=== PATIENT | male | born 2000 | race Caucasian/White ===

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

== ENCOUNTER 2018-03-31 07:07 | Day surgery (SDC) | payer BC ==
[2018-03-31] MEDS ORDERED: LIDOCAINE 2% INJ 100 MG/5 ML SDV (FOR ANES.) As Ordered (08:15)
[2018-03-31] MEDS ORDERED: dexameTHASONE 4 MG/ML 1ML VIAL (J1100) As Ordered (08:15)
[2018-03-31] MEDS ORDERED: SUCCINYLCHOLINE 100 MG/5 ML SYRINGE (J0330) As Ordered (08:15)
[2018-03-31] MEDS ORDERED: ONDANSETRON 4MG/2ML VIAL (J2405) As Ordered (08:15)
[2018-03-31] MEDS ORDERED: PROPOFOL 200 MG/20 ML VIAL As Ordered (08:15)
[2018-03-31] MEDS ORDERED: fentaNYL 100 MCG/2 ML INJECTION (J3010) As Ordered ×2 (08:15→08:43)
[2018-03-31] MEDS ORDERED: LR 1,000 ML IV ×2 (08:15→09:15)
[2018-03-31] MEDS ORDERED: MIDAZOLAM INJ 2 MG/2 ML VIAL (J2250) As Ordered (08:15)
[2018-03-31] MEDS ORDERED: ROCURONIUM BROMIDE 50 MG/5 ML VIAL As Ordered (08:15)
[2018-03-31] MEDS: LIDOCAINE 1% MDV 20ML VIAL As Ordered (08:31)
[2018-03-31] MEDS: BUPIVACAINE HCL 0.25% 10 ML VIAL As Ordered (08:32)
[2018-03-31] MEDS: PERCOCET 5MG/325MG TAB PO (09:00)
[2018-03-31] MEDS ORDERED: PERCOCET 5MG/325MG TAB As Ordered (09:02)
[2018-03-31] MEDS ORDERED: HYDROMORPHONE HCL 0.5 MG/ 0.5 ML SYRINGE (J1170 PER 1) IV (09:15)
[2018-03-31] MEDS ORDERED: fentaNYL 100 MCG/2 ML INJECTION (J3010) IV (09:15)
[2018-03-31] MEDS ORDERED: ONDANSETRON 4MG/2ML VIAL (J2405) IV (09:15)
[2018-03-31] MEDS ORDERED: IBUPROFEN 600 MG TAB PO (10:00)
[2018-03-31] MEDS ORDERED: LIDOCAINE VISCOUS 2% SOLN 15ML UDC PO (13:00)
== END 2018-03-31 10:19 | disposition home or self-care (01) ==
LOC: M SDC 10:19
DX: J35.8 Other chronic diseases of tonsils and adenoids (principal); J35.01 Chronic tonsillitis
CPT/HCPCS: 42826

== ENCOUNTER 2018-04-01 07:47 | Emergency (ER) | payer BC ==
[2018-04-01] MEDS ORDERED: ONDANSETRON 4MG/2ML VIAL (J2405) As Ordered ×2 (08:42)
[2018-04-01] MEDS: ONDANSETRON 4MG/2ML VIAL (J2405) IV ×2 (08:43)
[2018-04-01] MEDS: MORPHINE 4 MG/ML 1ML VIAL/SYRINGE (J2270) IV ×2 (08:44)
[2018-04-01] MEDS ORDERED: MORPHINE 4 MG/ML 1ML VIAL/SYRINGE (J2270) IV ×2 (08:45)
== END 2018-04-01 09:55 | disposition home or self-care (01) ==
LOC: M ED 07:47
DX: G89.18 Other acute postprocedural pain (principal)
CPT/HCPCS: J2270

== ENCOUNTER 2018-09-30 19:49 | Emergency (ER) | payer BC ==
[~2018-09-30] VITALS: Ht 170.2 cm; Wt 92.3 kg
[~2018-09-30 19:49] MED LIST: LIDVISCBTL; OXYC1SOL3 PO; SM CPOW PO; [UNRECOGNIZED DRUG - CODE]; [UNRECOGNIZED DRUG - CODE] PO
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
[2018-09-30] MEDS ORDERED: ADACEL/BOOSTRIX VACCINE (DIPHTH/PERTUSS/ACELL/TETANUS)0.5ML SYR (90715) IM ONE (21:00)
[2018-09-30 21:21] VITALS: BP 124/62
== END 2018-09-30 21:28 | disposition home or self-care (01) ==
LOC: M ED 19:49
DX: S06.0X1A Concussion with loss of consciousness of 30 minutes or less, initial encounter (principal); S01.01XA Laceration without foreign body of scalp, initial encounter; V86.55XA Driver of 3- or 4- wheeled all-terrain vehicle (ATV) injured in nontraffic accident, initial encounter; Y92.89 Other specified places as the place of occurrence of the external cause

== ENCOUNTER → 2018-10-07 | Outpatient (CLI) | payer BC ==
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
== END ==
LOC: M ADAMS 13:54
PROVIDERS: ATTEND Physician Assistant
DX: S30.0XXA Contusion of lower back and pelvis, initial encounter (principal); X58.XXXA Exposure to other specified factors, initial encounter; Y92.9 Unspecified place or not applicable